=== PATIENT | male | born 1985 | race Caucasian/White ===

== ENCOUNTER 2017-06-17 00:10 | Emergency (ER) | payer SELFPAY ==
[2017-06-17 00:24] VITALS: BP 124/84; PULSE 101; RESP 18; TEMP 36.9; O2SAT 98; BMI 21.4
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
--- NOTE | 2017-06-17 00:34 | CT_ITS ---
CT facial bones wo con CLINICAL INDICATION: Left facial pain and swelling following injury with contusion or hematoma ITS.REASON: trauma ORDERING PHYSICIAN: Juan Whitman MD PATIENT AGE: 31 years COMPARISON: None TECHNIQUE:Axial, sagittal, and coronal images are generated and reviewed without contrast FINDINGS: There is a comminuted fracture of the inferior orbital wall and close proximity to the inferior rectus muscle. Entrapment cannot be excluded radiographically. Comminuted displaced fracture of the lateral orbital wall with mild impaction. There is 3 mm medial displacement of the anterior fracture fragment which abuts the lateral rectus muscle. Comminuted impacted fracture of the left zygomatic arch. The anterior fracture fragment is impacted medially by 5 to 6 mm. There is an comminuted fracture involving the lateral wall the maxillary sinus with minimal medial impaction of the fracture fragments impacted fracture involves the anterior wall of the left maxillary sinuses well the fracture fragments impacted centrally x 6 mm. Small amount subcutaneous gas is present adjacent to this fracture. Gas is also present at the lateral maxillary sinus wall fracture. The medial wall of the left maxillary sinus appears intact. The pterygoid plates are intact. A nondisplaced fracture involves the base of the coronoid process of the left mandible. Hyperdensity is present in the left maxillary sinus consistent with blood There is mild left exophthalmos with periorbital edema on the left. No intraocular gas. The left globe does appear intact. Small amount of soft tissue gas is present along the infraorbital rim fracture.. IMPRESSION: Comminuted impacted left tripod fracture as detailed above. Please see above for detailed description with a fracture involving the left orbital floor/infraorbital rim extending in nature wall left maxillary sinus also involving the lateral wall the left maxillary sinus, lateral wall of the orbit, and left zygomatic arch. Nondisplaced left mandible fracture also noted at the base of the coronoid process. Cannot exclude entrapment of the left inferior rectus muscle. Blood is present within left maxillary sinus
--- NOTE | 2017-06-17 00:39 | PC.NURSE ---
pt to rad by wheelchair
[2017-06-17 02:02] VITALS: BP 124/78; PULSE 90; RESP 18; TEMP 36.8
== END 2017-06-17 02:02 | disposition home or self-care (01) ==
PROVIDERS: Emergency Provider Emergency Medicine; Family Provider Emergency Medicine
DX: S02.92XA Unspecified fracture of facial bones, initial encounter for closed fracture (principal); W50.0XXA Accidental hit or strike by another person, initial encounter; F17.210 Nicotine dependence, cigarettes, uncomplicated
CPT/HCPCS: 70486; 99281

== ENCOUNTER 2020-10-27 18:12 | Emergency (ER) | payer OTHER, SELFPAY ==
[2020-10-27 18:20] VITALS: BP 142/62; PULSE 61; RESP 20; TEMP 37.2; O2SAT 98; BMI 22.1
--- NOTE | 2020-10-27 18:24 | XR_ITS ---
PROCEDURE INFORMATION: Exam: XR Right Hand Exam date and time: 10/27/20 06:24 PM Age: 34 years old Clinical indication: Injury or trauma; Other: Punched a forklift steering wheel. ; Blunt trauma (contusions or hematomas); Injury details: Patient punched a forklift steering wheel with right hand. TECHNIQUE: Imaging protocol: XR Right hand. Views: 3 or more views. COMPARISON: No relevant prior studies available. FINDINGS: Bones/joints: Acute fracture of the base of the 5th metacarpal, nondisplaced. Soft tissues: Soft tissue swelling over the 5th metacarpal. IMPRESSION: 1. Acute fracture of the base of the 5th metacarpal, nondisplaced. 2. Soft tissue swelling over the 5th metacarpal.
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
[2020-10-27 19:42] VITALS: BP 142/62; PULSE 61; RESP 20; TEMP 37.2; O2SAT 98
== END 2020-10-27 19:50 | disposition home or self-care (01) ==
PROVIDERS: Emergency Provider Nurse Practitioner; PCP Emergency Medicine
DX: S62.306A Unspecified fracture of fifth metacarpal bone, right hand, initial encounter for closed fracture (principal); W22.8XXA Striking against or struck by other objects, initial encounter; Y92.89 Other specified places as the place of occurrence of the external cause; F17.210 Nicotine dependence, cigarettes, uncomplicated
CPT/HCPCS: 29125; 73130; 99202; G0463

== ENCOUNTER 2021-01-05 09:08 | Emergency (ER) | payer OTHER, SELFPAY ==
[2021-01-05 10:00] VITALS: BP 154/90; PULSE 83; RESP 19; TEMP 37.6; O2SAT 99; BMI 22.1
--- NOTE | 2021-01-05 10:40 | HMH.EDUTC ---
[facility] [place] Clinical Impression: Viral syndrome, Encounter for laboratory testing for COVID-19 virus Disposition: Home, Self-Care Condition on Discharge: Good Instructions: DI for COVID-19 (Suspected or Confirmed ), Preventing the Spread of Coronavirus Discharge Instructions Additional Instructions: *Monitor Temp, Over the counter Motrin or Tylenol as directed/as needed Tylenol every 4 hours and Motrin every 6 hours (as long as your family doctor has told you that you can take it) for fever or pain. and straight to ER if unable to lower temp less than 101.0 after medication given *Warm salt water gargles may help to soothe the throat *Throat Lozenges *Warm fluids like tea with honey may help to soothe the throat *Sleep elevated *Humidifier/Vaporizer Follow up IMMEDIATELY for new or worsening symptoms or no Noticeable improvement over the next 48-72 hours. 911 for difficulty breathing or swallowing You were tested for today for COVID19 your test result should be back in the next 24-48 hours, you may call to the [facility] to see if your test results are back in the next 48 hours [phone] [facility] hours are 9am-9pm You was given a handout with instructions for Self Quarantine and Self isolation for while you wait on test results and what to do if they are positive If you are positive the Health Dept will be contacting you also Make sure to take your Vitamins Vit. C Vit D and Zinc if you can take them Prescriptions: guaiFENesin [Mucinex 600mg tablet] 1 - 2 tab PO Q12HP PRN #20 tab PRN Reason: Congestion Transmission Status: Pending to [facility] Referrals: Juan Whitman MD [Primary Care Provider] - As needed Forms: Work/School Release Medical Decision Making - Junaid Inquiry Pt receiving controlled substance: No Junaid was queried for this patient: No Vital Signs: 01/05/21 10:00 Temperature 99.7 F H Temperature Source Oral Pulse Rate [Right Brachial] 83 Respiratory Rate 19 Blood Pressure [Right Arm] 154/90 H Blood Pressure Mean [Right Arm] 111 Blood Pressure Source [Right Arm] Automatic Cuff Blood Pressure Position [Right Arm] Sitting 02 Sat by Pulse Oximetry 99 Oxygen Delivery Method Room Air Orders (Tests/Meds): ORDERS Category Date Time Status Covid-19 Nasal PCR ([facility]) Routine Lab 01/05/21 10:06 Received [facility] [place] HPI - General Stated complaint: covid test Time Seen by Provider: 01/05/21 10:40 Mode of Arrival: Ambulatory Source of Information: Patient Limitations: No Limitations Description of Symptoms (Recalled from Triage Doc. by RN): PATIENT C/O COUGH, HEADACHE, BODY ACHES, AND FEVER X 3 DAYS HEENT Symptoms (Recalled from RN notes): Yes Resp Symptoms (Recalled from RN notes): Yes Skin Symptoms (Recalled from RN notes): No MS Symptoms (Recalled from RN notes): No Functional Status (Recalled from RN notes): WNL - History of Present Illness Provider Complaint: Patient states that he was around his son over the weekend that was sick State that he woke up yesterday with body aches and chills, State that he also had headache States that he didnt go to work and laid back down State that today he got up and was still having cough, headache and body aches/fever so he came in to get tested for COVID - Related Data Previous Rx's Medication Instructions Recorded Ibuprofen [Ibuprofen 600mg 600 mg PO Q6HP PRN #20 tab 10/27/20 Tablet] guaiFENesin [Mucinex 600mg tablet] 1 - 2 tab PO Q12HP PRN #20 tab 01/05/21 Allergies Allergy/AdvReac Type Severity Reaction Status Date / Time No Known Allergies Allergy Verified 10/29/20 09:24 - Worker's Comp Is this a Worker's Comp case?: No [facility] History - Hepatitis A Screen Drug use history?: No High risk sexual behaviors?: No History of sexually transmitted infection?: No Currently employed?: No Childcare worker?: No Do you have indoor plumbing?: Yes Do you have electricity?: Yes Attestation statement:: This patient gonzalez
[2021-01-05 10:42] VITALS: BP 154/90; PULSE 83; RESP 19; TEMP 37.6; O2SAT 99
--- NOTE | 2021-01-06 11:58 | PC.NURSE ---
PT NOTIFIED OF POSITIVE COVID TEST RESULTS
== END 2021-01-05 10:50 | disposition home or self-care (01) ==
PROVIDERS: Emergency Provider Nurse Practitioner; PCP Emergency Medicine
DX: U07.1 COVID-19 (principal); F17.210 Nicotine dependence, cigarettes, uncomplicated
CPT/HCPCS: 99202; G0463; U0003

== ENCOUNTER 2024-02-22 09:44 | Emergency (ER) | payer SELFPAY ==
[2024-02-22 09:45] VITALS: BP 147/94; PULSE 86; RESP 18; TEMP 36.8; O2SAT 98; BMI 22.8
--- NOTE | 2024-02-22 10:02 | ED_ITS ---
Discharge Plan Disposition Patient Disposition: Home, Self-Care Prescriptions Prescriptions: New erythromycin 5 mg/gram (0.5 %) ointment 1 applic ophthalmic (eye) QID Qty: 3.5 0RF No Action ibuprofen 600 MG tablet 600 mg PO Q6HP PRN (Reason: Moderate Pain) Qty: 20 0RF guaifenesin 600 MG tablet extended release 12hr 1 - 2 tab PO Q12HP PRN (Reason: Congestion) Qty: 20 0RF Referrals Follow up/Referrals: Nagi Rodríguez DO [Primary Care Provider] - See instructions Activity Restrictions/Add. Instructions Additional Instructions/Restrictions: Call your family doctor to establish care for this visit to the emergency department and schedule follow-up within 48 hours to ensure improvement. If you have any worsening of your condition or any other concerning signs or symptoms, return to the emergency department or your primary care doctor for further evaluation. Erythromycin ointment 3-4 times daily for 5 days as discussed. Clinical Impressions Clinical Impression: Hordeolum external Qualifiers: Laterality: right Eyelid: upper Qualified Code(s): H00.011 - Hordeolum externum right upper eyelid Print Language Print Language: Bengali Discharge ED Provider: Mingo Bell General Adult HPI General Chief complaint: Eye Problems Stated complaint: right eye swollen, irritated Time Seen by Provider: 02/22/24 09:45 Mode of Arrival: Ambulatory Source of Information: Patient Limitations: No Limitations Description of Symptoms (Recalled from ER Triage Doc. by RN): r eye pain. History of Present Illness HPI narrative: Please note that above description of symptoms, in this electronic medical record under categorization of recalled from ER triage doctor by RN are reflective of an initial nursing assessment, however, is not reflective of my full history and physical exam that was personally taken and clarified. Consequentially, this preceding description of symptoms, which may include the patient's categorized chief complaint in the EMR, do not reflect my personal clinical impression, and the ultimate description of history of present illness and patient stated complaints should be deferred to this section of the note. Unless stated otherwise or congruent with this section of the note, additional signs, symptoms, or incongruence should be interpreted as inaccurate with my clinical impression. Related Data Previous Rx's ?Medication ?Instructions ?Recorded ibuprofen 600 mg tablet 600 mg PO Q6HP PRN Moderate Pain 10/27/20 #20 tabs guaifenesin 600 mg tablet, 1 - 2 tab PO Q12HP PRN Congestion 01/05/21 extended release 12 hr #20 tabs erythromycin 5 mg/gram (0.5 %) eye 1 applic ophthalmic (eye) QID #3.5 02/22/24 ointment grams Allergies Allergy/AdvReac Type Severity Reaction Status Date / Time No Known Allergies Allergy Verified 10/29/20 09:24 [facility] Disclaimer: The information contained in this section may have been updated after the patient was seen, as this information can be updated by other users. Social History Smoking Status: Current every day smoker tobacco type: cigarettes packs per day: 1 alcohol intake: never substance use type: crack/cocaine, opiates, inhalants, IV drugs and other current occupational status: other Travel in the last 8 weeks: None Other Medical History Have you received the Flu Vaccine for this season: No Have you received the Pneumonia Vaccine: No ROS Obtained: Yes All systems reviewed & no additional complaints except as documented Physical Exam General General appearance: alert Head Head exam: atraumatic and normocephalic Eye Eye exam: Present PERRL, EOMI and other (Per MDM) Neck Neck exam: Present normal inspection, full ROM and trachea midline Respiratory Respiratory exam: Absent respiratory distress, wheezes, stridor, accessory muscle use or prolonged expiratory phase Cardiovascular Cardiovascular exam: Present other (Pulses equal symmetric in upper and lower extremities) Abdominal Exam Abdominal exam: Present soft; Absent distention, tenderness or pulsatile mass Extremities Exam Extremities exam: Absent edema Neurological Exam Neurological exam: Present alert, oriented X3 and CN II-XII intact; Absent motor sensory deficit Skin Skin exam: Present warm and dry; Absent diaphoresis or erythema Medical Decision Making Medical Records Medical records reviewed: Yes I reviewed the patient's medical records. Screening: Per USPSTF and CDC recommendations, given the prevalence of disease in our region, it is our hospital?s policy to screen for HIV and viral Hepatitis for all patients aged 18 and over and those with ongoing risk factors. Junaid Inquiry Pt receiving controlled substance: No Junaid was queried for this patient: No Vital Signs: 02/22/24 09:45 Temperature 98.3 F Temperature Source Oral Pulse Rate [Right] 86 Respiratory Rate 18 Blood Pressure [Right Arm] 147/94 H Blood Pressure Mean [Right Arm] 111 02 Sat by Pulse Oximetry 98 Oxygen Delivery Method Room Air Orders (Tests/Meds): ORDERS Category Date Time Status HIV (1&2) Antibody Rapid Stat Lab 02/22/24 09:51 Ordered Hep C Ab with Reflex to RNA Stat Lab 02/22/24 09:51 Ordered Medical Decision Narrative: This is a 38-year-old male presenting with hordeolum. He states that he had a hordeolum on his upper right eyelid medially and was doing fine with warm compresses. Ended up rupturing yesterday and since that time, he is he has had swelling up into his eyelid. Nontender. No vision changes, no fevers or chills, no pain with EOMs. Came in just due to the swelling to make sure everything was okay. On arrival, patient has no other complaints. EOMs intact, reported visual acuity intact. Pupils equal and reactive bilaterally. No evidence of scleral injection or icterus. He does have hordeolum about 0.5 cm from medial canthus on right upper eyelid. No foreign body on inspection. No photophobia. No evidence of hyphema, proptosis, entrapment, conjunctival hemorrhage, pupillary changes, cellulitic change, obvious foreign body, or otherwise irregular ocular findings. Fluorescein exam and IOP deferred at this time given no complaints of pain or trauma. Patient to be given erythromycin for home-going. Because patient at baseline without signs or symptoms of clinical decompensation, deemed appropriate for discharge. Results were relayed to patient who voiced understanding and were agreeable to outpatient management and follow up. I discussed my clinical impression with patient and answered all questions. At this time, the evidence for any other entities in the differential is insufficient to warrant any further testing or ED observation. This was explained as well. Advisory was given that persistent or worsening symptoms require further evaluation. I confirmed the understanding of this discussion. Centrifuge Separator Tender disclaimer Much of this encounter note is an electronic filler blender spoken language to printed text. Electronic filler blender of the spoken language may permit errors. Although I have reviewed the note, some errors may still exist. Critical Care Critical Care Time Critical Care Time: No
[2024-02-22 10:05] VITALS: BP 138/82; PULSE 72; RESP 18; TEMP 36.8; O2SAT 98
== END 2024-02-22 10:07 | disposition home or self-care (01) ==
PROVIDERS: Emergency Provider Emergency Medicine; PCP Internal Medicine
DX: H00.011 Hordeolum externum right upper eyelid (principal); H02.843 Edema of right eye, unspecified eyelid
CPT/HCPCS: 99282